=== PATIENT | female | born 1975 | race Caucasian/White ===

== ENCOUNTER → 2019-09-05 | Outpatient (CLI) | payer OTHER, SELFPAY ==
[2017-01-18 10:11] VITALS: BMI 33.5
== END | disposition home or self-care (01) ==
LOC: LABSPEC 09-06 07:34
PROVIDERS: PCP Orthopaedic Surgery; Visit Provider Family Medicine Hospice and Palliative Medicine
DX: Z11.59 Encounter for screening for other viral diseases (principal)
CPT/HCPCS: 87635; G2023; U0003

== ENCOUNTER 2021-04-03 06:58 | Day surgery (SDC) | payer OTHER, SELFPAY ==
[2021-04-03] VITALS (8 sets, daily range): BP systolic 106–133; BP diastolic 68–81; PULSE 77–97; RESP 16–18; TEMP 36.1–36.3; O2SAT 96–100; BMI 35.9
[2021-04-03] MEDS: Lactated Ringers 1,000 ML 15 ML IV (07:39)
[2021-04-03] MEDS: Cefazolin 2 GM in 0.9% Normal Saline 100 ML IV (10:20)
--- NOTE | 2021-04-03 10:30 | RAD_ITS ---
STUDY: X-RAY - LEFT ANKLE REASON FOR EXAM: Female, 46 years old. 6 intraoperative digital documentation views of internal brace placement. TECHNIQUE: 6 intraoperative digital documentation view(s) of the ankle. COMPARISON: None. FINDINGS: 6 intraoperative digital documentation views were obtained. RAD/Ankle 2 Views IMPRESSION: Documentation of intraoperative digital documentation views. Electronically Signed: Hang Tatum MD at 11:46 EST ,
--- NOTE | 2021-04-03 11:28 | PCM.DC ---
Discharge Instructions Follow Up Care Test Results: Test results from this visit will be discussed in further detail at your follow-up appointment, if applicable. Discharge Plan Admission Attending Provider: Joaquim Michel Primary Care Provider: Vimal Balderas Instructions Additional Instructions / Restrictions: Follow preprinted instructions from your surgeon's office Discharge Orders/Prescriptions Prescriptions: No Action lamotrigine [Lamictal] 200 MG tablet 400 mg PO QHS RF: 0 multivitamin Tablet 1 tab PO DAILY RF: 0 clonazepam [Klonopin] 0.5 mg tablet 0.5 mg PO PRN PRN (Reason: Anxiety) RF: 0 levothyroxine 100 mcg tablet 100 mcg PO DAILY RF: 0 Fish Oil Capsule 1,000 mg PO DAILY RF: 0 Referrals / Follow Up: Vimal Balderas MD [Primary Care Provider] - Joaquim Michel DO [STAFF PHYSICIAN] - Within 2 Weeks Disposition Disposition (needs filled in before D/C Order can be placed): Home, Self Care
--- NOTE | 2021-04-03 11:28 | PCM.OPRPT ---
Report of Operation Date of Procedure: 04/03/21 Description of Surgical Findings:: Preoperative diagnosis: Recurrent left ankle instability Postoperative diagnosis: Recurrent left ankle instability Procedure: Left ankle modified Brostr?m Mills procedure with internal brace Surgeon: Joaquim Michel DO Stuntman: Britta Judge SA Anesthesia: MAC with peroneal block Anesthesiologist: Dr. Raffaele Hunt CRNA Complications: None Drains: None Estimated blood loss: 10 cc Urinary output: None recorded IV fluids: Per anesthesia record Specimens: None Surgical implants: Arthrex fiber tack DX suture anchor with 1.3 mm suture tape x2, internal brace ligament augmentation repair bio composite with swivel lock 4.5 mm anchor x2 Surgical indications: This is a 46-year-old female seen in the outpatient setting for recurrent left ankle instability and pain. MRI was obtained and revealed chronic changes in both the anterior talofibular ligament and calcaneofibular ligament. There were no identifiable osteochondral lesions of the talus. She had exhaustive therapy and bracing with persistent ankle instability. I offered a Brostr?m procedure for her left ankle with internal brace. We reviewed the procedure. We reviewed its risks, benefits, and service. Risks included but were not limited to bleeding, infection, loss of life or limb, need for additional surgery, persistent pain, neurovascular injury, DVT or PE, wound complications, persistent instability. Patient expressed understanding his risk was proceed with surgery. Description of procedure: Patient was seen in preoperative holding area. She was identified by name, medical record number, date of . The operative extremity was marked with a surgical marker. We confirmed informed consent with the patient and all questions were answered to her satisfaction. In the preoperative holding area, a popliteal block was administered by the anesthesia staff. At time of her procedure, patient was brought to the operative suite and positioned supine on a standard operating table. All bony prominences were well-padded. Sedation was administered. After adequate anesthesia, a well-padded pneumatic tourniquet was applied to the left upper thigh. A large bump was placed in the patient's left hip. The left lower extremity was elevated on bath blankets for fluoroscopic imaging and access to the limb during surgery. We secured this with tape as well as the nonoperative extremity. We then performed a timeout with all parties in attendance and agree with the side, site, operation to be performed. No concerns were voiced and elected to proceed. 2 g Ancef was administered prior to incision by the anesthesia staff. We then prepped and draped the left lower extremity in normal, sterile orthopedic fashion. I brought in C arm to perform a stress radiograph examination of the left ankle. There was significant talar tilt and instability anteriorly and increased lateral clear space. C arm was then brought out of the surgical field. The operative extremity was exsanguinated with an Esmarch bandage. Tourniquet was inflated to 250 mmHg. Esmarch was removed. A standard anterolateral approach to the ankle traversing the tarsal sinus was carried through the skin and subcutaneous tissue with a 15 blade scalpel, approximately 6 cm in length. I bluntly dissected through subcutaneous tissue. A self-retaining retractor was placed deep. The extensor retinaculum was identified and stripped from its insertion onto the lateral malleolus. I then elevated the ATFL and capsule from the lateral malleolus. There is significant scar tissue in the gutter which was debrided. I then marked both 1 and 2 cm respectively from the tip of the lateral malleolus along its anterior surface for fiber tack suture anchors. These were drilled and placed under head of merchandise buying recommendations. Attached suture was then passed through the ATFL remnant in a mattress fashion. I then identified the insertion of the ATFL on the lateral talus. I drilled unit cortically for a swivel lock anchor with the labral tape perform an internal brace procedure. This was placed with excellent purchase. I then passed the labral tape through the ATFL distally to allow for internal brace to be placed superficial to the ligament. I then tied the fiber tape suture attached to the fiber tack anchors with the foot in maximal dorsi flexion and eversion. I then drilled unicortically 15 mm from the tip of the lateral malleolus for a swivel lock to complete the internal brace procedure. The foot was held in neutral eversion and 15 degrees of plantar flexion. I placed a hemostat deep to the internal brace to not excessively tension it. The swivel lock was then placed while tensioning the internal brace appropriately. I then performed a pants over vest plication of the extensor retinaculum with a #0 Ethibond. C arm was then brought back in for repeat stress examination which revealed dramatically improved stability of the ankle. I then thoroughly irrigated the wound with normal saline solution. Dermis was reapproximated with buried 3-0 Vicryl suture interrupted fashion. Skin was finally reapproximated with a running subcuticular 4-0 Monocryl suture. Steri-Strips were then applied. A sterile compression dressing was then applied as well as a bulky well-padded AO 3 sided fiberglass splint. I was careful to mold the patient in the splint in maximal dorsiflexion and maximum eversion of the ankle. Anesthesia was then reversed. She was transferred to her gurney and subsequently to PACU in stable condition. Post Operative Plan: Weightbearing: Nonweightbearing operative extremity Antibiotics: Ancef 2 g x 1 dose preoperatively DVT Prophylaxis: 81 mg aspirin twice daily to start tomorrow Delgado: None Dressing: Maintain splint, keep it clean dry and intact until follow-up X-Rays: None Pain Medication: Percocet Rx upon discharge Follow-up: 2 weeks post-operatively with me in the office
[2021-04-03] MEDS: oxyCODONE 5 MG Tablet 10 MG PO (13:08)
== END 2021-04-03 23:59 | disposition home or self-care (01) ==
LOC: SDC 07:00 → AC 07:02
PROVIDERS: PCP Orthopaedic Surgery; Referring Provider Student in an Organized Health Care Education/Training Program; Visit Provider Student in an Organized Health Care Education/Training Program
PROC: (CPT 29999; principal; 2021-04-03 08:40)
DX: M25.372 Other instability, left ankle (principal); S93.492A Sprain of other ligament of left ankle, initial encounter; X58.XXXA Exposure to other specified factors, initial encounter; E78.00 Pure hypercholesterolemia, unspecified; E03.9 Hypothyroidism, unspecified; F32.A Depression, unspecified; F41.9 Anxiety disorder, unspecified; E66.9 Obesity, unspecified; R03.0 Elevated blood-pressure reading, without diagnosis of hypertension; Z71.3 Dietary counseling and surveillance; Z68.36 Body mass index [BMI] 36.0-36.9, adult; Z79.899 Other long term (current) drug therapy
CPT/HCPCS: 27698; 01470; 64450; 73600; 76000; J7120; J2405

== ENCOUNTER 2021-07-20 23:51 | Emergency (ER) | payer OTHER, SELFPAY ==
[2021-07-20 23:54] VITALS: BP 141/92; PULSE 102; RESP 18; TEMP 36.8; O2SAT 96; BMI 36.5
--- NOTE | 2021-07-21 00:03 | EDS_ITS ---
HPI HPI - GI History of Present Illness Chief Complaint: Nausea/Vomiting/Diarrhea Informant: patient Abdominal Pain/Flank Pain Onset: Hours (18) Context: Gradual Onset Timing: Intermittent Quality: Cramping Location: Epigastric Current Severity: Mild Maximum Severity: Mild Worsened by: - (Vomiting) Relieved by: Nothing Nausea/Vomiting/Emesis GI Symptom: Positive for Nausea and Vomiting Onset: Today Quality: Positive for Nonbilious; Negative for Blood streaks, Coffee ground and Hematemesis Severity: Severe Diarrhea/Melena/Hematochezia GI Symptom: Positive for Diarrhea; Negative for Melena and Hematochezia Onset: Today (Was pretty bad, loose, better now) Associated Symptoms Associated Symptoms: Negative for Dysuria, Frequency, Hematuria and Urgency Narrative Narrative: Patient has had fevers, vomiting, diarrhea for the last 18 hours or so. The diarrhea is better but she is still vomiting and unable to keep anything down. She has been coughing for about 2 days, nonproductive, she had 1 episode of dyspnea but think she had an anxiety attack and otherwise has been breathing fine but she has felt some symptoms in her chest and out concern for all of these symptoms, went to the ER at [facility]. A chest x-ray was done, and labs, and she was told that everything was normal but the wait was so long for her to actually get into her room and get treated that she decided to leave and come here. She states that her doctor came and told her that these tests were all normal. Additionally, she had 2 COVID and 2 influenza tests that were negative, including both rapid and PCR COVID. She states prior to going to the ER, she did a virtual visit and someone prescribed her Zofran, prednisone (for unknown reasons, patient does not have asthma), and Tessalon but pharmacies have been closed and she has been unable to fill any of this. [facility] Medical History Anxiety Back pain Colitis Depression Gastric reflux High cholesterol History of IBS History of ulceration Injury of head and neck Non-smoker Thyroid disease Wears glasses Home Medications lamotrigine [Lamictal] 400 mg PO QHS 11/20/14 [History Last Taken 10/24/16 08:00] clonazepam [Klonopin] 0.5 mg PO PRN PRN 03/25/21 [History Last Taken Unknown] levothyroxine 100 mcg PO DAILY 03/25/21 [History Last Taken 04/03/21 05:30] multivitamin 1 tab PO DAILY 03/25/21 [History Last Taken Unknown] omega-3 fatty acids [Fish Oil] 1,000 mg PO DAILY 03/25/21 [History Last Taken Unknown] dicyclomine 20 mg PO Q4H PRN PRN #20 capsule 07/21/21 [Rx Last Taken Unknown] ondansetron 8 mg PO Q8H PRN PRN #4 tab 07/21/21 [Rx Last Taken Unknown] Allergy/AdvReac Type Severity Reaction Status Date / Time metoclopramide [From Reglan] AdvReac Itching Verified 04/03/21 07:34 ANTIDEPRESSANTS AdvReac Other Uncoded 04/03/21 07:34 Surgical History History of hysteroscopy Hx laparoscopic cholecystectomy Hx of colonoscopy Hx of inguinal hernia surgery Hx of tonsillectomy Social History Smoking Status: Never smoker ROS ROS ED Constitutional Constitutional ED: Reports chills, fever(s) and malaise Eyes Eyes: Denies change in vision or diplopia ENT ENT ED: Denies rhinorrhea or sore throat Cardiovascular Cardiovascular: Denies chest pain or palpitations Respiratory/Chest Respiratory/Chest: Reports cough; Denies dyspnea on exertion Gastrointestinal Gastrointestinal: Reports as per HPI, abdominal pain, diarrhea, nausea and vomiting Genitourinary Genitourinary ED: Denies dysuria or hematuria Musculoskeletal Musculoskeletal: Denies back pain or neck pain Integumentary Denies abscess or rash Neurologic Neurologic: Denies headache(s), paresthesias or weakness Psychiatric Psychiatric: Reports anxiety; Denies suicidal thoughts EXAM Physical Exam Const Vital Signs: 07/20/21 23:54 Temperature 98.2 F Temperature Source Oral Pulse Rate 102 H Respiratory Rate 18 Blood Pressure 141/92 H Blood Pressure Mean 108 Pulse Ox 96 Oxygen Delivery Method Room Air Positive well nourished and well developed General Appearance ED: well developed and NAD HEENT Reports moist mucous membranes normocephalic and atraumatic Eyes PERRL and EOMs intact bilaterally Neck full ROM and supple Resp normal respiratory effort and clear to auscultation bilaterally Cardio regular rate, regular rhythm and no murmurs Cardio Narrative: Mildly tachycardic GI non-tender and non-distended Auscultation: normoactive bowel sounds Palpation: soft Back/Spine no CVA tenderness General Back: other FROM Extremity normal to inspection General Extremety ED: Negative for edema, pulses abnormal or tenderness General Extremity: Negative for edema or pulses abnormal Neuro oriented x3, CN's II-XII intact bilaterally and no sensory deficits noted Sensorium / Orientation: awake and alert Motor Exam: strength 5/5 throughout Psych mental status grossly normal, thought process normal, cooperative, speech normal and activity/motor behavior normal Psych Narrative: Somewhat anxious Skin no rashes or lesions noted and no wounds MDM MDM MDM Narrative Medical decision making narrative: Aside from mild tachycardia, her vital signs are normal and she is not hypoxic with clear lungs, we did submit for records from [facility], however by the time we treated the patient as she was doing better we still have not received them. I discussed all this with the patient, and my feeling like she probably has a viral gastroenteritis and if she is okay with the report on the tests she received from the outside hospital, I am okay not repeating them. She and family are in agreement with this and they do not want the test repeated. After IV fluids and Zofran she is feeling much better and tolerating oral fluids. She does not have any more cramping right now, but I will give her prescription for dicyclomine in addition to some Zofran for the night in case she needs them after leaving, as the prescription that she has from another provider was electronic and deliver to a different pharmacy that is closed right now. Discharge Plan Triage Chief Complaint: Nausea/Vomiting/Diarrhea ED Provider: Narendra Davila Dx/Rx/DC Orders Clinical Impression: Gastroenteritis, URI (upper respiratory infection) Instructions: Viral Gastroenteritis Prescriptions: New dicyclomine 10 MG capsule 20 mg PO Q4H PRN PRN (Reason: abdominal discomfort) Qty: 20 RF: 0 ondansetron [ondansetron] 4 MG tablet 8 mg PO Q8H PRN PRN (Reason: Nausea) Qty: 4 RF: 0 No Action lamotrigine [Lamictal] 200 MG tablet 400 mg PO QHS RF: 0 multivitamin Tablet 1 tab PO DAILY RF: 0 clonazepam [Klonopin] 0.5 mg tablet 0.5 mg PO PRN PRN (Reason: Anxiety) RF: 0 levothyroxine 100 mcg tablet 100 mcg PO DAILY RF: 0 Fish Oil Capsule 1,000 mg PO DAILY RF: 0 Primary Care Provider: Vimal Balderas Referrals: Vimal Balderas MD [Primary Care Provider] - Doctor,Your [STAFF PHYSICIAN] - 3-5 Days if not improving Disposition Disposition: Home, Self Care
[2021-07-21] MEDS: 0.9% Normal Saline 1,000 ML 999 ML IV (00:22)
[2021-07-21] MEDS: Ondansetron 4 MG/2 ML Vial IV (00:22)
[2021-07-21 01:46] VITALS: BP 116/77; PULSE 91; RESP 15; O2SAT 97
[2021-07-21 02:13] VITALS: BP 116/70; PULSE 80; RESP 15; O2SAT 97
== END 2021-07-21 02:15 | disposition home or self-care (01) ==
PROVIDERS: Emergency Provider Emergency Medicine; PCP Orthopaedic Surgery; Visit Provider Emergency Medicine
DX: K52.9 Noninfective gastroenteritis and colitis, unspecified (principal); J06.9 Acute upper respiratory infection, unspecified; E07.9 Disorder of thyroid, unspecified; F32.A Depression, unspecified; F41.9 Anxiety disorder, unspecified; Z79.899 Other long term (current) drug therapy
CPT/HCPCS: 96361; 96374; 99284; J7030; A4216; J2405

== ENCOUNTER 2021-12-25 10:09 | Day surgery (SDC) | payer OTHER, SELFPAY ==
--- NOTE | 2021-12-22 16:28 | PCM.HP.BLA ---
History and Physical Date of Admission: 12/25/21 HPI: The patient is a 46 year old female presenting for pre-operative visit. She is scheduled for hysteroscopy with endometrial ablation, for menorrhagia on 12/25/21. Procedure discussed along with risks, benefits and complications. Other alternatives discussed for management. Consent form signed? Yes. ? ? PAST MEDICAL HISTORY PAST MEDICAL HISTORY Diagnosis Date ? Breast pain 04/2016 ? Bilateral breast ? Heartburn ? ? Hypothyroidism 2007 ? Insomnia ? ? Multiple lipomas 2015 ? Right leg ? ? PAST SURGICAL HISTORY PAST SURGICAL HISTORY Procedure Laterality Date ? LAPAROSCOPY SURG CHOLECYSTECTOMY ? 04/29/2008 ? Cholecystectomy, lap ? LIGATE FALLOPIAN TUBE ? 2016 ? TONSILLECTOMY PRIMARY/SECONDARY <AGE 12 ? ? ? Tonsillectomy ? ? ? CURRENT MEDICATIONS Current Outpatient Medications Medication Sig Dispense Refill ? omega 5-rsc-jsb-fish oil (FISH OIL) 100-160-1,000 mg cap Take by mouth. ? ? ? levothyroxine (SYNTHROID) 100 mcg tablet Take 100 mcg by mouth daily before breakfast. ? ? ? therapeutic multivitamin tablet Take 1 tablet by mouth once daily. ? 0 ? lamoTRIgine (LAMICTAL) 200 mg tablet Take 1 tablet by mouth twice daily. ? 0 ? No current facility-administered medications for this visit. ? ? ALLERGIES: Reglan [Metoclopramide] ? PERSONAL HISTORY: SOCIAL HISTORY Social History ? Tobacco Use ? Smoking status: Never ? Smokeless tobacco: Never Vaping Use ? Vaping Use: Never used Substance Use Topics ? Alcohol use: Yes ? ? Comment: rarely. ? Drug use: No ? FAMILY HISTORY: FAMILY HISTORY FAMILY HISTORY Problem Relation Age of Onset ? Psychiatry Mother ? ? Depression ? Diabetes Maternal Grandmother ? ? Thyroid Maternal Grandmother ? ? Osteoporosis Maternal Grandmother 60 ? Stroke Maternal Grandmother 75 ? Alzheimer's Disease Maternal Grandfather ? ? Prostate Cancer Maternal Grandfather 80 ? other (Blood Clot) Maternal Grandfather 80 ? Diabetes Paternal Grandmother ? ? Heart Paternal Grandmother ? ? Hypertension Paternal Grandmother ? ? Heart Paternal Grandfather ? ? Hypertension Paternal Grandfather ? ? other (Heart Attack) Paternal Aunt 38 ? ? REVIEW OF SYMPTOMS: GENERAL: denies fevers or chills ENDOCRINOLOGY: has not been on steroids Cardiology : denies palpitations or chest pain Respiratory: denies SOB or cough Hematology: denies history of prolonged bleeding or easy bruising or VTE Allergy: Denies history of personal or family history of allergy to anesthesia ? PHYSICAL EXAMINATION: ? VITALS: Blood pressure 112/82, pulse 84, height 5' 1.61 (1.565 m), weight 203 lb 3.2 oz (92.2 kg), last menstrual period 11/17/2021, SpO2 98 %. ? GENERAL: The patient is well nourished, well hydrated in no acute distress. , The patient is oriented to time, place, and person. NECK: Supple. No lynphadenopathy, normal thyroid, no thyromegaly. LUNGS: Clear to auscultation bilaterally. no wheezes, rhonchi or rales HEART: Regular rate and rhythm, Normal heart sounds, and No murmurs or gallops ? IMPRESSION: menorrhagia ? PLAN: The risks/benefits/alternatives and personal involved for the planned hysteroscopy with endometrial ablation were reviewed with the patient. Her questions were answered to her satisfaction and she desires to proceed. Consent was signed. I reviewed with her postop instructions and expectations. ? ? I have reviewed and updated past medical and surgical history, medications and allergies Assessment & Plan Assessment/Plan (1) Menorrhagia with regular cycle:
[2021-12-25] VITALS (7 sets, daily range): BP systolic 108–132; BP diastolic 69–86; PULSE 75–102; RESP 16–18; TEMP 36.2–36.8; O2SAT 100; BMI 36.8
[2021-12-25] MEDS: Lactated Ringers 1,000 ML 15 ML IV (11:11)
[2021-12-25] MEDS: Acetaminophen 500 MG Tablet 1000 MG PO (11:12)
[2021-12-25] MEDS: Ketorolac 30 MG/ML Syringe IV (11:12)
--- NOTE | 2021-12-25 12:00 | EMB_PTH ---
PATIENT: JASE RIVERA LOC: [facility] [place] U#:[id number] AGE/SX: 46/F ROOM: RE12/25/[address]: Dr. Federica Mcclellan MD : 1975 BED: DIS: 12/25/2021 SPEC #: [id number] RECD: 12/25/21 13:44 STATUS: GUDELIA REKelley #: [id number] JEANETH: 12/25/21 12:[address]: Federica Mcclellan DEPT: SURGICAL PATHOLOGY RECD BY: Lacey Swenson ENTERED: 12/25/21 13:58 SP TYPE: ENDOM BX/C OTHR DR: Dr. Vimal Balderas MD Tissues: Endometrium, NOS Procedures: Surgery Specimen Level IV HEADER OPERATION: Hysteroscopy, D & C Keyonna PRE-OP DIAGNOSIS: Abnormal uterine bleeding TISSUE SUBMITTED: Endometrial curettings MICROSCOPIC DIAGNOSIS Endometrium, curettings: Mildly disordered proliferative endometrium. Fragments of benign polypoid endocervix. AM:ciaran 12/26/2021 MICROSCOPIC DESCRIPTION Slides are reviewed. GROSS DESCRIPTION Received in fixative is one container labeled with the patient's name and designated endometrial curettings. The specimen consists of multiple irregular fragments of light best soft tissue that in aggregate measure 2 x 1.5 x 0.1 cm. The specimen is totally submitted in one cassette. / AM:ciaran 12/25/2021 TC:3 CPT: 76827
--- NOTE | 2021-12-25 12:03 | PCM.DC ---
Discharge Instructions Diet Discharge Diet: No restrictions Activity May resume sexual activity in: 2 weeks Lifting Restrictions: none Dressing / Incision Call your doctor if your incision/area has: Sudden Increased Bleeding and Foul Smelling Discharge Call your doctor if you observe: Fever of 101 or Higher and Using more than 1 pad per hour (for 2 hrs in a row) Follow Up Care Please Follow Up With: Federica Mcclellan MD When: 2-4 weeks or as needed. Call [phone] to make an appointment or with any concerns. Test Results: Test results from this visit will be discussed in further detail at your follow-up appointment, if applicable. Discharge Plan Admission Primary Reason for Your Visit: Keyonna endoemtrial ablation Attending Provider: Federica Mcclellan Primary Care Provider: Vimal Balderas Discharge Orders/Prescriptions Prescriptions: New ibuprofen [ibuprofen] 600 MG tablet 600 mg PO Q6H PRN PRN (Reason: fever or pain) 20 Days Qty: 60 1RF oxycodone 5 MG tablet 5 mg PO Q8H PRN (Reason: severe pain) 72 Days Qty: 5 0RF Continued lamotrigine [Lamictal] 200 MG tablet 400 mg PO QHS Label Comments: moof clonazepam [Klonopin] 0.5 mg tablet 0.5 mg PO PRN PRN (Reason: Anxiety) Label Comments: TAKE ONE TABLET BY MOUTH TWICE DAILY AFTER MEALS levothyroxine 100 mcg tablet 100 mcg PO DAILY Label Comments: TAKE ONE TABLET BY MOUTH EVERY DAY omega-3 fatty acids Capsule 1,000 mg PO DAILY spironolactone 50 mg tablet 50 mg PO DAILY Label Comments: Take orally once a day, OR taper as directed by MD. Drink a full glass of water with each dose. Use eNurse on [employer]'s jdoee to guide you. cholecalciferol (vitamin D3) [Vitamin D3] 25 mcg (1,000 unit) Capsule 25 mcg PO MOWEFR Referrals / Follow Up: Vimal Balderas MD [Primary Care Provider] - Disposition Disposition (needs filled in before D/C Order can be placed): Home, Self Care
[2021-12-25] MEDS: Lidocaine 2% /Epi 1:100 (20ml) 20 ML VIAL (12:12)
--- NOTE | 2021-12-25 12:32 | PCM.OPRPT ---
Problems Associated Problem List Diagnoses (1) Menorrhagia with regular cycle: Report of Operation Date of Procedure: 12/25/21 Pre-Operative Diagnosis: menorrhagia Post-Operative Diagnosis: same Surgery/Procedure Performed:: Hysteroscopy D&C with Keyonna endometrial ablation Description of Surgical Findings:: lush endometrium without focal abnormalities, normal cervix and vagina Surgeon: Federica Mcclellan electronics test engineer: Geneva Mccall Type of Anesthesia: MAC/Supplemental/Local Anesthesiologist: Samia Reyes Special Medications: none Specimen's removed: endometrial curettings Drains: none Estimated Blood Loss (mL): 10 Fluids Replaced: 400cc Description of Procedure: The patient was taken to the OR where she was prepped and draped in dorsal lithotomy position. The weighted speculum was placed in the vagina and the anterior lip of the cervix was grasped with a single-tooth tenaculum. A paracervical block was administered with 2% lidocaine with 1-100,000 epinephrine solution. The cervix was dilated serially with Hegar dilators. The 5mm hysteroscope was placed into the uterine cavity and the above findings were noted. Bilateral tubal ostia were identified. The uterus sounded to 8 cm and the cervical length was 3.5cm. The endometrial cavity length was 4.5cm. The hysteroscope was removed. A gentle sharp curettage was done of the uterine cavity. The specimen was handed off and sent to pathology. The Keyonna device was set to 4.5cm. The instrument was then seated into the endometrial cavity and the indicator was in the green. The cervical seal balloon was inflated and the uterine integrity test was passed. The ablation procedure was initiated and completed without interruption. During the ablation procedure gentle traction was held on the tenaculum and the Keyonna device was held up against the uterine fundus. When the ablation procedure was completed the Keyonna was removed. The tenaculum was removed and the tenaculum site was noted to be hemostatic. All sponge and needle counts were correct. A vaginal sweep was performed by me. The patient was awakened and taken to the recovery room in stable condition. Hysteroscopic fluid deficit was 200 cc of normal saline Findings: Endometrial cavity: Normal, no fibroids or polyps noted Cervix: Normal Vagina: Normal Grafts/Implants Used: none Procedure Start Time: 12:13 Procedure Stop Time: 12:27 Complications none Admit VTE Documentation VTE Present on Admission: No VTE Mechan Device Prophylaxis: SCD's VTE Pharm Prophylaxis ordered?: No Reason prophylaxis not ordered:: Procedure Not Indicated
== END 2021-12-25 13:58 | disposition home or self-care (01) ==
LOC: SDC 10:13 → AC 10:14
PROVIDERS: PCP Orthopaedic Surgery; Referring Provider Obstetrics & Gynecology; Visit Provider Obstetrics & Gynecology
PROC: 0U5B8ZZ Destruction of Endometrium, Via Natural or Artificial Opening Endoscopic (ICD-10-PCS; CPT 58558; principal; 2021-12-25 11:50)
DX: N92.0 Excessive and frequent menstruation with regular cycle (principal); I10 Essential (primary) hypertension; E03.9 Hypothyroidism, unspecified; F32.A Depression, unspecified; F41.9 Anxiety disorder, unspecified; Z90.49 Acquired absence of other specified parts of digestive tract; Z79.899 Other long term (current) drug therapy
CPT/HCPCS: 58563; 00952; 88305; J7120; J2405

== ENCOUNTER → 2022-01-07 | Outpatient (CLI) | payer OTHER, SELFPAY ==
--- NOTE | 2022-01-07 15:52 | BI_ITS ---
MAMMOGRAPHY - BILATERAL SCREENING REASON FOR EXAM: Female, 46 years old. Routine annual screening examination. PERTINENT HISTORY: Non-contributory. TECHNIQUE: Digital bilateral breast jake (3D mammographic acquisition) in the CC and MLO projections. 2-D mediolateral oblique (MLO) and craniocaudad (CC) views of both breasts were obtained. CAD: Full Field Digital Mammography with Computer Added Detection was performed. COMPARISON: Comparison is made with prior study dated 05/26/2016 and 04/08/2015. FINDINGS: Breast Composition: The breasts are heterogeneously dense, which may obscure small masses. There are no dominant masses or suspicious calcifications. Stable small benign-appearing bilateral axillary lymph nodes. No other significant abnormalities are identified. There has been no significant change since the prior study. BI/SCRN MAMM (CAD)W/JAKE BILAT IMPRESSION: Stable bilateral screening mammogram. Yearly follow-up mammogram recommended. (A) ASSESSMENT CATEGORY: BIRADS Category 2: Benign. A letter regarding these results will be sent to the patient by the facility within 30 days. Approximately 10% of breast cancers are not detected by mammography. A normal mammogram should not delay biopsy of a clinically suspicious abnormality. [id number] Electronically Signed: João Hinojosa MD at 9:58 EST ,
== END | disposition home or self-care (01) ==
LOC: OPBI 15:50
PROVIDERS: PCP Orthopaedic Surgery; Visit Provider Family Medicine
DX: Z12.31 Encounter for screening mammogram for malignant neoplasm of breast (principal)
CPT/HCPCS: 77063; 77067

== ENCOUNTER 2022-06-17 20:40 | Emergency (ER) | payer OTHER, SELFPAY ==
[2022-06-17 20:42] VITALS: BP 157/100; PULSE 95; RESP 20; TEMP 35.9; O2SAT 98
[2022-06-17 21:26] LABS: Mucous, Urine 0 SEEN /hpf (<or=2+); Red Blood Cells-Urine 0 SEEN /hpf (0-5); White Blood Cells 0 SEEN /hpf (0-5)
[2022-06-17 21:27] LABS: ALB/GLOB Ratio 0.9 RATIO (0.9-2.4); AST(SGOT) 23 U/L (15-37); Alanine Aminotransfer ALT/SGPT 36 U/L (13-56); Albumin, Serum 3.8 g/dL (3.2-5.0); Alkaline Phosphatase 65 U/L (45-117); Anion Gap 5 (5-15); BUN 11 mg/dL (7-18); BUN/Creat Ratio 11.5 RATIO (10-20); Calcium,Total 9.4 mg/dL (8.5-10.1); Chloride 106 mmol/L (98-107); Creatinine, Serum 0.96 mg/dL (0.55-1.02); EST Glomerular Filtration Rate 66 mL/min (>60); Est Glom Filt Rate - Afr Amer 80 mL/min (>60); Globulin 4.3 g/dL (2.2-4.2); Glucose 98 mg/dL (74-106); Potassium 3.8 mmol/L (3.5-5.1); Protein, Total 8.1 g/dL (6.4-8.2); Sodium Level 136 mmol/L (136-145)
[2022-06-17 21:44] LABS: Color, Urine Straw (Yellow); Glucose, Dipstick Normal (Normal); Ketone-Dipstick Negative (Negative); Leukocyte Esterase-Dipstick Negative /ul (Negative); Nitrite-Dipstick Negative (Negative); Occult Blood-Urine Negative /ul (Negative); Protein-Dipstick Negative (Negative); Urine Bilirubin Dipstick Negative (Negative); Urine Clarity Clear (Clear); Urine Urobilinogen Normal (Normal)
[2022-06-17 21:49] LABS: Bacteria RARE /hpf (None Seen); Squamous Epithelial Cells - UA 0-5 SEEN /hpf (5-10)
[2022-06-17 22:36] LABS: Absolute Lymphocyte Count 3.55 X10^3/uL (0.83-4.51); Absolute Neutrophil Count 5.3 X10^3/uL (2.0-7.7); Basophil# 0.07 X10^3/uL; Basophil% 0.7 % (0-1); Eosinophil# 0.22 X10^3/uL; Eosinophils% 2.2 % (0-5); Hematocrit 38.6 % (37-47); Hemoglobin 12.7 g/dL (12.0-15.0); Lymphocyte # 3.55 X10^3/ul (0.83-4.51); Lymphocyte % 35.8 % (19-41); Mean Corp Hgb Conc 32.9 g/dL (32-36); Mean Corpuscular Hgb 29.7 pg (27.0-32.0); Mean Corpuscular Volume 90.4 fL (81-99); Mean Platelet Vol. 9.7 fl (6.2-12.0); Monocyte# 0.74 X10^3/uL; Monocyte% 7.5 % (0-10); NRBC Flagged by Analyzer 0 % (0-5); Neutrophil # 5.25 X10^3/uL (2.7-7.7); Neutrophil % 52.9 % (47-70); Platelet Count 327 K/mm3 (150-450); RBC Distribution Width CV 12.9 % (11.6-14.6); RBC Distribution Width SD 41.8 fl (35.1-43.9); Red Blood Count 4.27 M/mm3 (4.2-5.4); White Blood Count 9.9 K/mm3 (4.4-11.0)
--- NOTE | 2022-06-17 22:38 | CT_ITS ---
INDICATION: abdominal pain EXAMINATION: CT ABDOMEN AND PELVIS WITH CONTRAST - CT Abdomen And Pelvis W/ Contrast Injection TECHNIQUE: Helically acquired images were obtained of the abdomen and pelvis following IV contrast. A radiation dose optimization technique was used for this scan. IV Contrast dosage and agent: 100 mL of Isovue-300. Oral contrast: None. COMPARISON: No recent comparison imaging. FINDINGS: LOWER CHEST: Lung bases are clear. No cardiomegaly or pericardial effusion. LIVER: Homogeneous. No focal mass. GALLBLADDER AND BILIARY TREE: Gallbladder is absent or collapsed. No visible surgical clips gallbladder fossa. No intra- or extrahepatic biliary ductal dilation. PANCREAS: No focal cystic or solid mass. SPLEEN: Normal size without focal cystic or solid mass. ADRENAL GLANDS: No nodules. KIDNEYS, URETERS and BLADDER: Normal renal size and position. No mass. No hydronephrosis. Bladder is unremarkable. No genitourinary stone. PERITONEUM: No ascites or free air. No other fluid collection. BOWEL: Normal appendix identified. No abnormally distended bowel loops or air fluid levels. No wall thickening or mass. No focal inflammatory changes. LYMPH NODES: No enlarged mesenteric or retroperitoneal lymph nodes. VESSELS: Aorta is normal. REPRODUCTIVE ORGANS: Moderate fluid in the endometrial cavity measuring 2.3 cm in AP thickness. There is also mild hyperenhancement of surrounding endometrium. Normal CT appearance bilateral ovaries. ABDOMINAL WALL: No discrete abdominal or pelvic wall hernia. BONES: No lytic or blastic abnormality. There is sacralization of L5 on the right with widening transverse process articulating with right sacral base. Moderate sclerosis seen at the articulation. CT/Abdomen/Pelvis W IV Cont ONLY IMPRESSION: Nonspecific endometrial cavity fluid but also with mild endometrial hyperenhancement. This could be potentially within normal limits during the menstrual cycle. Careful clinical correlation is recommended to exclude possible endometritis. Otherwise normal exam. Electronically Signed: Gumaro Tam DO at 23:25 EDT ,
--- NOTE | 2022-06-17 23:43 | EDS_ITS ---
HPI HPI - GI History of Present Illness Chief Complaint: Abd Pain Narrative Narrative: 47-year-old female stating that she has abdominal pain feels like a pressure in the lower abdomen. This has been ongoing for couple of months. She had an ultrasound which showed some fluid in her uterus and she states he supposed to have a hysterectomy upcoming. Patient had a CT a month or 2 ago and states that it was okay. She states that every time she eats something she gets waves of pressure and diarrhea. She does no nausea or vomiting. She states that her [employer] did call her in some pain medicine but she states she has been reluctant to take this because she has to work and she is a nurse. Patient denies any vaginal bleeding or vaginal discharge. [facility] Medical History Anxiety Back pain Colitis Depression Gastric reflux High cholesterol History of IBS History of ulceration Hypertension Injury of head and neck Non-smoker Thyroid disease Wears glasses Home Medications lamotrigine 200 mg tablet (Lamictal) 400 mg PO QHS 11/20/14 [History Last Taken 10/24/16 08:00] clonazepam 0.5 mg tablet (Klonopin) 0.5 mg PO PRN PRN Anxiety 03/25/21 [History Last Taken Unknown] levothyroxine 100 mcg tablet 100 mcg PO DAILY 03/25/21 [History Last Taken 04/03/21 05:30] omega-3 fatty acids 1,000 mg PO DAILY 03/25/21 [History Last Taken Unknown] cholecalciferol (vitamin D3) 25 mcg (1,000 unit) capsule (Vitamin D3) 25 mcg PO MOWEFR 12/18/21 [History Last Taken Unknown] spironolactone 50 mg tablet 50 mg PO DAILY 12/18/21 [History Last Taken Unknown] ibuprofen 600 mg tablet 600 mg PO Q6H PRN PRN fever or pain 20 days #60 TABLETS 12/25/21 [Rx Last Taken Unknown] oxycodone 5 mg tablet 5 mg PO Q8H PRN severe pain 72 days #5 TABLETS 12/25/21 [Rx Last Taken Unknown] Allergy/AdvReac Type Severity Reaction Status Date / Time metoclopramide [From Reglan] AdvReac Itching Verified 06/17/22 20:41 Phenylpiperazine AdvReac PT UNABLE Verified 06/17/22 20:41 Antidepressant TO RESPOND-NEEDS F/U Tetracyclic Antidepressants AdvReac PT UNABLE Verified 06/17/22 20:41 TO RESPOND-NEEDS F/U Tricyclic Antidepressants AdvReac PT UNABLE Verified 06/17/22 20:41 and Tricy TO RESPOND-NEEDS F/U Surgical History H/O tubal ligation History of hysteroscopy History of surgery Hx laparoscopic cholecystectomy Hx of colonoscopy Hx of inguinal hernia surgery Hx of tonsillectomy Social History Smoking Status: Never smoker ROS ROS ED Constitutional Constitutional ED: Denies chills, fever(s) or sweats Eyes Eyes: Denies blurry vision or change in vision ENT ENT ED: Denies ear pain or sore throat Cardiovascular Cardiovascular: Denies chest pain, palpitations or racing heartbeat Respiratory/Chest Respiratory/Chest: Denies cough, dyspnea or sputum Gastrointestinal Gastrointestinal: Reports abdominal pain and diarrhea; Denies constipation, nausea or vomiting Genitourinary Genitourinary ED: Denies dysuria, hematuria or urinary frequency Musculoskeletal Musculoskeletal: Denies arthralgias, myalgias or neck pain Integumentary Denies abscess, Abrasions or rash Neurologic Neurologic: Denies headache(s), paresthesias or weakness Psychiatric Psychiatric: Denies anxiety, depression, suicidal ideation or suicidal thoughts Endocrine Endocrinology: Denies polydipsia or polyuria EXAM Physical Exam Const Vital Signs: 06/17/22 20:42 Temperature 96.7 F L Temperature Source Temporal Pulse Rate 95 Respiratory Rate 20 H Blood Pressure 157/100 H Blood Pressure Mean 119 Pulse Ox 98 Oxygen Delivery Method Room Air Positive well nourished General Appearance ED: NAD; Negative for pallor HEENT Reports moist mucous membranes normocephalic and atraumatic Eyes PERRL Neck no lymphadenopathy Resp normal respiratory effort Cardio regular rate and regular rhythm GI non-tender Inspection: Negative for abdominal distention Palpation: Negative for guarding or rigid Back/Spine no CVA tenderness Neuro CN's II-XII intact bilaterally and moves all extremities Sensorium / Orientation: alert Psych mental status grossly normal Skin General Skin Exam: Negative for jaundice or pallor MDM MDM MDM Narrative Medical decision making narrative: Patient presenting with lower pelvic pain she had for extended period of time. She notes that she had an ultrasound already that showed some fluid in the uterus and states that she supposed to have a hysterectomy. No vaginal bleeding, vaginal discharge. No dysuria or hematuria. She does complain of diarrhea. On examination I cannot reproduce any pain. He does have a benign abdomen. She states just feels like pressure in the bilateral lower quadrants. Differential includes diverticulitis, colitis, endometritis, ovarian cyst, UTI. CBC was used to assess white blood cell count, hemoglobin, platelets, differential and this was normal. CMP to assess liver function, renal function, glucose, anion gap and this is also normal. Patient was medicated with morphine, Zofran and did have some improvement. Is unclear to me why she has been taking the Percocet at home before coming to the emergency room but she states she has 9 left out of 10. These were prescribed [address] of the ab pelvis with IV contrast shows nonspecific endometrial fluid. This could be a normal variant. There is also the evidence of endometritis however the patient does not have any vaginal bleeding, discharge, fever, leukocytosis. I suspect she will just need to follow-up with gynecology. She is amenable to this. I recommend she take the pain medicine she is prescribed at home. Return p recautions discussed. Impression: 1. Abdominal pain 2. Diarrhea Lab Data Labs: Laboratory Results - last 24 hr 06/17/22 06/17/22 06/17/22 21:00 21:07 22:20 WBC 9.9 RBC 4.27 Hgb 12.7 Hct 38.6 MCV 90.4 MCH 29.7 MCHC 32.9 RDW Std Deviation 41.8 RDW Coeff of Adeola 12.9 Plt Count 327 MPV 9.7 Immature Gran % (Auto) 0.900 Neut % (Auto) 52.9 Lymph % (Auto) 35.8 [place] % (Auto) 7.5 Eos % (Auto) 2.2 Baso % (Auto) 0.7 Absolute Neuts (auto) 5.3 Absolute Lymphs (auto) 3.55 Nucleated RBC % 0 Sodium 136 Potassium 3.8 Chloride 106 Carbon Dioxide 25.0 Anion Gap 5 BUN 11 Creatinine 0.96 Est GFR (MDRD) Af Amer 80 Est GFR (MDRD) Non-Af 66 BUN/Creatinine Ratio 11.5 Glucose 98 Calcium 9.4 Total Bilirubin 0.30 AST 23 ALT 36 Alkaline Phosphatase 65 Total Protein 8.1 Albumin 3.8 Globulin 4.3 H Albumin/Globulin Ratio 0.9 Urine Color Straw Urine Clarity Clear Urine pH 6.0 Ur Specific [place] 1.010 Urine Protein Negative Urine Glucose (UA) Normal Urine Ketones Negative Urine Occult Blood Negative Urine Nitrite Negative Urine Bilirubin Negative Urine Urobilinogen Normal Ur Leukocyte Esterase Negative Urine RBC 0 SEEN Urine WBC 0 SEEN Ur Squamous Epith Cells 0-5 SEEN Urine Bacteria RARE Urine Mucus 0 SEEN Radiography Diagnostic Testing: Clinical Impression(s) from Imaging Studies Abdomen/Pelvis CT 06/17/22 22:38 IMPRESSION: Nonspecific endometrial cavity fluid but also with mild endometrial hyperenhancement. This could be potentially within normal limits during the menstrual cycle. Careful clinical correlation is recommended to exclude possible endometritis. Otherwise normal exam. Electronically Signed: Gumaro Tam DO at 23:25 EDT , Discharge Plan Triage Chief Complaint: Abd Pain ED Provider: Dieudonne Anderson Dx/Rx/DC Orders Prescriptions: No Action lamotrigine [Lamictal] 200 MG tablet 400 mg PO QHS Label Comments: moof clonazepam [Klonopin] 0.5 mg tablet 0.5 mg PO PRN PRN (Reason: Anxiety) Label Comments: TAKE ONE TABLET BY MOUTH TWICE DAILY AFTER MEALS levothyroxine 100 mcg tablet 100 mcg PO DAILY Label Comments: TAKE ONE TABLET BY MOUTH EVERY DAY omega-3 fatty acids Capsule 1,000 mg PO DAILY spironolactone 50 mg tablet 50 mg PO DAILY Label Comments: Take orally once a day, OR taper as directed by MD. Drink a full glass of water with each dose. Use eNurse on [employer]'s jodee to guide you. cholecalciferol (vitamin D3) [Vitamin D3] 25 mcg (1,000 unit) Capsule 25 mcg PO MOWEFR ibuprofen [ibuprofen] 600 MG tablet 600 mg PO Q6H PRN PRN (Reason: fever or pain) 20 Days Qty: 60 1RF oxycodone 5 MG tablet 5 mg PO Q8H PRN (Reason: severe pain) 72 Days Qty: 5 0RF Primary Care Provider: Vimal Balderas: Vimal Balderas MD [Primary Care Provider] -
[2022-06-18 00:02] VITALS: BP 144/89; PULSE 74; RESP 18; O2SAT 97; BMI 39.5
== END 2022-06-18 00:03 | disposition home or self-care (01) ==
PROVIDERS: Emergency Provider Student in an Organized Health Care Education/Training Program; PCP Family Medicine; Visit Provider Student in an Organized Health Care Education/Training Program
DX: R10.30 Lower abdominal pain, unspecified (principal); R19.7 Diarrhea, unspecified
CPT/HCPCS: 36415; 74177; 80053; 81001; 85025; 99282; Q9967; A4216

== ENCOUNTER 2023-02-12 08:28 | Day surgery (SDC) | payer OTHER, SELFPAY ==
--- NOTE | 2023-01-27 17:01 | PCM.HP.BLA ---
History and Physical Date of Admission: 02/12/23 HPI: The patient is a 47 year old female presenting for pre-operative visit. She is scheduled for LAV, for menorrhagia, dysmenorrhea, postendomet ablation syndrome on 02/12/23. Procedure discussed along with risks, benefits and complications. Other alternatives discussed for management. Consent form signed? Yes. ? ? PAST MEDICAL HISTORY PAST MEDICAL HISTORY Diagnosis Date ? Breast pain 04/2016 ? Bilateral breast ? Heartburn ? ? Hypothyroidism 2007 ? Insomnia ? ? Multiple lipomas 2014 ? Right leg ? ? PAST SURGICAL HISTORY PAST SURGICAL HISTORY Procedure Laterality Date ? HYSTEROSCOPY ENDOMETRIAL ABLATION ? 12/25/2021 ? [facility] ? LAPAROSCOPY SURG CHOLECYSTECTOMY ? 04/29/2008 ? Cholecystectomy, lap ? LIGATE FALLOPIAN TUBE ? 2016 ? TONSILLECTOMY PRIMARY/SECONDARY <AGE 12 ? ? ? Tonsillectomy ? ? ? CURRENT MEDICATIONS Current Outpatient Medications Medication Sig Dispense Refill ? levothyroxine (SYNTHROID) 100 mcg tablet Take 100 mcg by mouth daily before breakfast. ? ? ? therapeutic multivitamin tablet Take 1 tablet by mouth once daily. ? 0 ? lamoTRIgine (LAMICTAL) 200 mg tablet Take 1 tablet by mouth twice daily. ? 0 ? No current facility-administered medications for this visit. ? ? ALLERGIES: Reglan [Metoclopramide] ? PERSONAL HISTORY: SOCIAL HISTORY Social History ? Tobacco Use ? Smoking status: Never ? Smokeless tobacco: Never Vaping Use ? Vaping Use: Never used Substance Use Topics ? Alcohol use: Yes ? ? Comment: rarely. ? Drug use: No ? FAMILY HISTORY: FAMILY HISTORY FAMILY HISTORY Problem Relation Age of Onset ? Psychiatry Mother ? ? Depression ? Diabetes Maternal Grandmother ? ? Thyroid Maternal Grandmother ? ? Osteoporosis Maternal Grandmother 60 ? Stroke Maternal Grandmother 75 ? Alzheimer's Disease Maternal Grandfather ? ? Prostate Cancer Maternal Grandfather 80 ? other (Blood Clot) Maternal Grandfather 80 ? Diabetes Paternal Grandmother ? ? Heart Paternal Grandmother ? ? Hypertension Paternal Grandmother ? ? Heart Paternal Grandfather ? ? Hypertension Paternal Grandfather ? ? other (Heart Attack) Paternal Aunt 38 ? ? REVIEW OF SYMPTOMS: GENERAL: denies fevers or chills ENDOCRINOLOGY: has not been on steroids Cardiology : denies palpitations or chest pain Respiratory: denies SOB or cough Hematology: denies history of prolonged bleeding or easy bruising or VTE Allergy: Denies history of personal or family history of allergy to anesthesia ? PHYSICAL EXAMINATION: ? VITALS: Last menstrual period 11/17/2021. ? GENERAL: The patient is well nourished, well hydrated in no acute distress. , The patient is oriented to time, place, and person. NECK: Supple. No lynphadenopathy, normal thyroid, no thyromegaly. LUNGS: Clear to auscultation bilaterally. no wheezes, rhonchi or rales HEART: Regular rate and rhythm, Normal heart sounds, and No murmurs or gallops ? IMPRESSION: postendometrial ablation syndrome, dysmenorrhea, menorrhagia, cervical stenosis ? PLAN: The risks/benefits/alternatives and personal involved for the planned LAVH were reviewed with the patient. Her questions were answered to her satisfaction and she desires to proceed. Consent was signed. I reviewed with her postop instructions and expectations. ? Postop rx given I have reviewed and updated past medical and surgical history, medications and allergies Assessment & Plan Assessment/Plan (1) Post endometrial ablation syndrome: (2) Menorrhagia: (3) Dysmenorrhea: (4) Cervical stenosis (uterine cervix):
[2023-02-12] VITALS (14 sets, daily range): BP systolic 105–138; BP diastolic 65–113; PULSE 74–102; RESP 12–19; TEMP 36–36.8; O2SAT 95–100; BMI 39.6
[2023-02-12 09:05] LABS: Internal QC Validated? YES +Cl - CLEAR BKGD
[2023-02-12] MEDS: Phenazopyridine 95 MG Tablet 190 MG PO (09:05)
[2023-02-12] MEDS: Acetaminophen 500 MG Tablet 1000 MG PO ×2 (09:05→16:00)
[2023-02-12 09:06] LABS: Pregnancy, Urine Negative Negative
[2023-02-12] MEDS: Scopolamine 1mg/72hr Patch 1 PATCH TD (09:06)
[2023-02-12] MEDS: Enoxaparin 40 MG/0.4 ML Syringe SC (09:06)
[2023-02-12] MEDS: Gabapentin 600 MG Tablet PO (09:06)
[2023-02-12] MEDS: dexAMETHasone 4 MG/ML Vial 8 MG IV (09:07)
[2023-02-12] MEDS: Lactated Ringers 1,000 ML 40 ML IV (09:09)
[2023-02-12 09:20] LABS: Hematocrit 40.7 % (37-47); Hemoglobin 13.4 g/dL (12.0-15.0); Mean Corp Hgb Conc 32.9 g/dL (32-36); Mean Corpuscular Hgb 29.2 pg (27.0-32.0); Mean Corpuscular Volume 88.7 fL (81-99); Mean Platelet Vol. 9.5 fl (6.2-12.0); Platelet Count 359 K/mm3 (150-450); RBC Distribution Width CV 13.3 % (11.6-14.6); RBC Distribution Width SD 43.1 fl (35.1-43.9); Red Blood Count 4.59 M/mm3 (4.2-5.4); White Blood Count 8.9 K/mm3 (4.4-11.0)
[2023-02-12 09:37] LABS: Bedside Glucose 93 mg/dL (74-106)
[2023-02-12 09:43] LABS: Magnesium 2.5 mg/dL (1.6-2.6)
[2023-02-12] MEDS: Magnesium 1 GM over 15 mins IV (10:04)
--- NOTE | 2023-02-12 10:45 | HYST_PTH ---
PATIENT: JASE RIVERA LOC: [facility] [place] U#:[id number] AGE/SX: 47/F ROOM: RE02/12/[address]: Dr. Federica Mcclellan MD : 1975 BED: DIS: 02/12/2023 SPEC #: [id number] RECD: 02/12/23 13:26 STATUS: GUDELIA REKelley #: [id number] JEANETH: 02/12/23 10:[address]: Federica Mcclellan DEPT: SURGICAL PATHOLOGY RECD BY: Lacey Swenson ENTERED: 02/12/23 13:48 SP TYPE: HYSTERECT OTHR DR: Dr. Chacho Hoskins MD Tissues: Uterus, NOS Procedures: Surgery Specimen Level V HEADER OPERATION: ERAS, hysterectomy, LAVH PRE-OP DIAGNOSIS: Post endometrial ablation syndrome, menorrhagia, dysmenorrhea TISSUE SUBMITTED: Uterus, cervix MICROSCOPIC DIAGNOSIS Uterus, hysterectomy: Cervix - nabothian cysts and mild chronic inflammation. Endometrium - weakly proliferative endometrium. Myometrium - No pathologic change. AM:ciaran 02/16/2023 MICROSCOPIC DESCRIPTION Slides are reviewed. GROSS DESCRIPTION Received in fixative is one container labeled with the patient's name and designated uterus. The specimen consists of a uterus with attached cervix without fallopian tubes or ovaries measuring 9.5 x 8.0 x 4.7 cm and weighing 119 gm. The endocervical canal measures 3.5 cm in length and is grossly unremarkable. The elongated endometrial cavity measures 3.0 x 2.2 cm. The reddish-best endometrium measures up to 0.1 cm in thickness. The myometrium measures 2.5 cm in average thickness and is free of mass lesions. Brush Machine Setter sections are submitted in six cassettes as follows: 1 - anterior cervix, 2??posterior cervix, 3 & 4 - anterior uterine wall, 5 & 6 - posterior uterine wall. / AM:ciaran 02/12/2023 TC:5 CPT: 67189
[2023-02-12] MEDS: Cefazolin 2 GM in 0.9% Normal Saline (100mL Bag) 100 ML IV (11:27)
[2023-02-12] MEDS: Lactated Ringers @ 70 MLS/HR 70 ML IV (11:30)
[2023-02-12] MEDS: Bupivacaine Mpf 0.5% 30 ML VIAL (12:45)
[2023-02-12] MEDS: Ondansetron 4 MG/2 ML Vial IV (12:47)
--- NOTE | 2023-02-12 12:49 | OP.PCM_ITS ---
Problems Associated Problem List Diagnoses (1) Dysmenorrhea: (2) Menorrhagia: (3) Post endometrial ablation syndrome: (4) Cervical stenosis (uterine cervix): Report of Operation Date of Procedure: 02/12/23 Pre-Operative Diagnosis: postendometrial ablation syndrome Post-Operative Diagnosis: SAME Surgery/Procedure Performed:: norbert Description of Surgical Findings:: Boggy normal sized uterus, normal cervix, absent tubes, stenotic cervix, normal ovaries Surgeon: Federica Mcclellan automotive design drafter: Suzy Rivera Type of Anesthesia: General Anesthesiologist: Elizabeth Guillen Special Medications: none Specimen's removed: uterus and cervix Drains: none Estimated Blood Loss (mL): 50 Fluids Replaced: 1200 Description of Procedure: The patient was taken to the operating room where she was prepped and draped in the dorsal lithotomy position. Her arms were tucked to the side and padded and her legs were placed in the yellowfin stirrups. Care was taken to ensure that she was placed in a neurologically safe and neutral position. A weighted speculum was placed in the vagina and the anterior lip of the cervix was grasped with a single-tooth tenaculum. The uterus sounded to 8 centimeters. The cervix was stenotic so cervical dilators were used. The ZUMI uterine manipulator was placed and secured. The Delgado catheter was placed to straight drain. Attention was turned to the abdominal portion of the case. Before skin incisions were made they were infiltrated with 0.5% Marcaine solution for local anesthetic. A 5 mm intraumbilical incision was made and while tenting the anterior abdominal wall up with towel clamps a 5 mm blade less trocar and sleeve were advanced directly into the peritoneal cavity. Peritoneal placement was confirmed with the laparoscope the pneumoperitoneum was created, and the underlying abdominal contents were intact. The patient was placed in Trendelenburg and the above findings were noted. Right and left lateral 5 mm trochars were placed under direct visualization without difficulty. The tubes were surgically absent. The round ligaments were clamped sealed and transected and a window was made in the peritoneum. The utero-ovarian ligaments were then clamped, sealed and transected with the LigaSure device and the pedicles were hemostatic The bladder flap was dissected down with the LigaSure device and blunt dissection and the uterine arteries were then skeletonized. The uterine arteries were clamped, sealed and transected on both sides with the LigaSure device. They were then transected. At this point the pedicles were all examined and found to be hemostatic. Attention was turned to the vaginal portion of the case. 1% lidocaine with dilute epinephrine solution was used to infiltrate the anterior vaginal epithelium over the cervix. An incision was made from 3 to 9:00 across the anterior vaginal epithelium and the vaginal epithelium was dissected back with blunt sharp dissection. The anterior colpotomy incision was made. The vaginal epithelium on each side of the cervix at 3 and 9:00 was clamped, transected and suture ligated. The next pedicle contained the anterior peritoneum and part of the cardinal ligament. The pedicle was was clamped with a Kale clamp, transected and suture-ligated. Hemostasis was noted. The uterine fundus was brought through the anterior colpotomy incision. The uterosacral ligaments and vaginal cuff were secured with Kale clamps. The pedicles were transected. The uterus and cervix were then amputated and removed. The pedicles were secured with an 0 Vicryl suture. At this point, the pedicles were all examined and hemostasis was assured. A [id number] was needed in the midline and the vaginal cuff between the uterosacrals to tack the peritoneum down to the posterior vaginal wall. The vaginal cuff was then closed in a horizontal fashion with interrupted 0 Vicryl [id number] sutures. Care was taken to secure the vagina to the uterosacral ligaments. A sponge stick was placed in the vagina to help place traction against the vaginal cuff. The laparoscope was reinserted into the abdomen and the pneumoperitoneum was re- created. The pedicles were reexamined and found to be hemostatic. The vaginal cuff was hemostatic. Hemoblast was placed over the peritoneal edges for some slight oozing. Was also placed over the remaining pedicles. The right and left lateral ports were taken out and the sites were hemostatic. The pneumoperitoneum was released and even under low pressure there was no bleeding of any of the pedicles are vaginal cuff. The umbilical port was removed. The umbilical skin incisions were closed with Monocryl suture and skin glue by Dr. Zamora. The vaginal instruments were removed by mt and a vaginal sweep was completed by Dr. Zamora. There were no qualified residents available for the case. Dr. Zamora provided tissue manipulation, retraction and assistance with suturing. The surgery was performed by me with assistance other than the portions dictated as above. There were no qualified residents available for this procedure. All sponge lap and needle counts were correct and the patient was transferred to the recovery room in stable condition. Grafts/Implants Used: none Procedure Start Time: 11:57 Procedure Stop Time: 12:54 Complications none Admit VTE Documentation VTE Present on Admission: No VTE Mechan Device Prophylaxis: SCD's VTE Pharm Prophylaxis ordered?: Yes Reason prophylaxis not ordered:: Procedure Not Indicated
[2023-02-12] MEDS: Lidocaine 1%/Epi 1:200 (30ml) 30 ML AMPUL (12:50)
--- NOTE | 2023-02-12 13:02 | DCINST_ITS ---
Discharge Instructions Diet Discharge Diet: Light diet - advance as tolerated Activity Discharge Activity: May Not Drive (for 1 week or until not on pain medications), May Shower and May Take a Tub Bath (in 6 weeks) May resume sexual activity in: 6-8 weeks and - (Nothing in your vagina for 6 weeks. No vaginal or anal intercourse for 6-8 weeks) Dressing / Incision Call your doctor if your incision/area has: Continuous Slow Oozing, Sudden Increased Bleeding and Foul Smelling Discharge Call your doctor if you observe: Inability to urinate Cleanse incision/area with: Soap & Water and - (Your incisions have skin glue, it can get wet, leave the glue on until it falls off. ) Follow Up Care Please Follow Up With: Federica Mcclellan MD When: With my office in 1-2 and 6 weeks or as needed. [phone] Send a [id number] message for nonurgent questions Test Results: Test results from this visit will be discussed in further detail at your follow- up appointment, if applicable. Discharge Plan Admission Primary Reason for Your Visit: Laparoscopic-assisted vaginal hysterectomy Attending Provider: Federica Mcclellan Primary Care Provider: Chacho Hoskins Discharge Orders/Prescriptions Prescriptions: New oxycodone 5 MG tablet 5 mg PO Q8H PRN (Reason: severe pain) 7 Days Qty: 12 0RF Continued lamotrigine [Lamictal] 200 MG tablet 400 mg PO QHS Patient Comments: moof clonazepam [Klonopin] 0.5 mg tablet 0.5 mg PO PRN PRN (Reason: Anxiety) Patient Comments: TAKE ONE TABLET BY MOUTH TWICE DAILY AFTER MEALS levothyroxine 100 mcg tablet 100 mcg PO DAILY Patient Comments: TAKE ONE TABLET BY MOUTH EVERY DAY ibuprofen 600 MG tablet 600 mg PO Q6H PRN PRN (Reason: fever or pain) 20 Days Qty: 60 1RF omeprazole magnesium [Prilosec OTC] 20 mg tablet,delayed release (DR/EC) 20 mg PO .QOD Referrals / Follow Up: Chacho Hoskins MD [Primary Care Provider] - Disposition Disposition (needs filled in before D/C Order can be placed): Home, Self Care
[2023-02-12] MEDS: oxyCODONE 5 MG Tablet PO (17:07)
== END 2023-02-12 18:03 | disposition home or self-care (01) ==
LOC: SDC 08:30 → AC 08:32
PROVIDERS: Anesthesiology; PCP Family Medicine; Referring Provider Obstetrics & Gynecology; Visit Provider Obstetrics & Gynecology
PROC: 0UT9FZZ Resection of Uterus, Via Natural or Artificial Opening With Percutaneous Endoscopic Assistance (ICD-10-PCS; CPT 58550; principal; 2023-02-12 10:30)
DX: N88.8 Other specified noninflammatory disorders of cervix uteri (principal); N92.0 Excessive and frequent menstruation with regular cycle; N94.6 Dysmenorrhea, unspecified; N88.2 Stricture and stenosis of cervix uteri; K21.9 Gastro-esophageal reflux disease without esophagitis; E07.9 Disorder of thyroid, unspecified; Z79.899 Other long term (current) drug therapy
CPT/HCPCS: 58550; 00840; 81025; 82962; 83735; 84443; 85027; 86850; 86900; 86901; 88307; J7120; J2405; J3475

== ENCOUNTER → 2023-11-26 | Outpatient (CLI) | payer OTHER, SELFPAY ==
--- NOTE | 2023-11-26 14:32 | BI_ITS ---
MAMMOGRAPHY - BILATERAL SCREENING REASON FOR EXAM: Female, 48 years old. Routine annual screening examination. PERTINENT HISTORY: Non-contributory. TECHNIQUE: Digital bilateral breast jake (3D mammographic acquisition) in the CC and MLO projections. 2-D mediolateral oblique (MLO) and craniocaudad (CC) views of both breasts were obtained. CAD: Full Field Digital Mammography with Computer Added Detection was performed. COMPARISON: Comparison is made with prior study dated January 07, 2022 and May 26, 2016. FINDINGS: Breast Composition: The breasts are heterogeneously dense, which may obscure small masses. There are no dominant masses or suspicious calcifications. Stable small benign-appearing bilateral axillary lymph nodes. No other significant abnormalities are identified. There has been no significant change since the prior study. BI/SCRN MAMM (CAD)W/JAKE BILAT IMPRESSION: Stable bilateral screening mammogram. Yearly follow-up mammogram recommended. (A) ASSESSMENT CATEGORY: BIRADS Category 2: Benign. A letter regarding these results will be sent to the patient by the facility within 30 days. Approximately 10% of breast cancers are not detected by mammography. A normal mammogram should not delay biopsy of a clinically suspicious abnormality. [id number] Electronically Signed: João Hinojosa MD at 15:55 EDT ,
== END | disposition home or self-care (01) ==
LOC: OPBI 14:30
PROVIDERS: PCP Nurse Practitioner Family; Referring Provider Nurse Practitioner Family; Visit Provider Nurse Practitioner Family
DX: Z12.31 Encounter for screening mammogram for malignant neoplasm of breast (principal)
CPT/HCPCS: 77063; 77067